=== PATIENT | female | born 1985 | race Caucasian/White ===

== ENCOUNTER 2020-09-11 12:12 | Emergency (ER) | payer OTHER ==
[2020-09-11] MEDS ORDERED: Sodium Chloride 0.9% 10 ML Syringe FLUSH PRN (12:34)
[2020-09-11] MEDS ORDERED: Sodium Chloride 0.9% 1,000 ML IV SCH ×2 (12:45→17:30)
[2020-09-11 13:06] LABS: CHLORIDE,CL 103 mmol/L (98-107); SODIUM,NA 138 mmol/L (136-145)
[2020-09-11 13:09] LABS: ANION GAP 13.1 mmol/L (10-20)
[2020-09-11 13:15] LABS: ACETAMINOPHEN 0 ug/ml (10-30)
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
[2020-09-11] MEDS ORDERED: Ketorolac 15 MG/ML SDV IVPUSH ONE (14:16)
[2020-09-11] MEDS ORDERED: Metoclopramide 10 MG/2 ML SDV IVPUSH ONE (14:18)
[2020-09-11 17:15] LABS: BARBITURATE SCREEN,URINE NEGATIVE (NEGATIVE); BENZODIAZEPINES SCREEN,URINE POSITIVE (NEGATIVE); EDDP,URINE SCREEN NEGATIVE (NEGATIVE); METHAMPHETAMINE SCREEN, URINE NEGATIVE (NEGATIVE); TCA SCREEN,URINE POSITIVE (NEGATIVE); THC SCREEN,URINE 50 NG/ML NEGATIVE (NEGATIVE)
--- NOTE | 2020-09-11 17:42 | CT ---
[id number] CT/CT Head WO IV EXAM: CT Head WO IV CLINICAL DATA: HEADACHE. COMPARISON STUDY: None FINDINGS: No intracranial hemorrhage, extra-axial fluid collection, mass, or acute ischemia. No hydrocephalus. Calvarium intact. Paranasal sinus mucosal thickening. Air-fluid level in left maxillary sinus. Frothy secretions in the sphenoid sinuses. Near complete opacification of the ethmoid sinuses. Mastoid air cells middle ear cavities are clear. IMPRESSION: Normal examination of the brain. Paranasal sinusitis. Inderjit Josue MD 09/11/20 1740 Thank you for allowing us to participate in the care of your patient.
== END 2020-09-11 18:55 | disposition short-term general hospital (02) ==
LOC: VM.ED 12:12
DX: T42.8X2A Poisoning by antiparkinsonism drugs and other central muscle-tone depressants, intentional self-harm, initial encounter (principal); T42.4X2A Poisoning by benzodiazepines, intentional self-harm, initial encounter; Z88.8 Allergy status to other drugs, medicaments and biological substances; Z88.1 Allergy status to other antibiotic agents; Z88.5 Allergy status to narcotic agent; Z79.899 Other long term (current) drug therapy; Z20.828 Contact with and (suspected) exposure to other viral communicable diseases
CPT/HCPCS: 70450; 80053; 80305-QW; 80307; 81001; 81025; 83735; 84443; 84484; 85025; 85610; 85730; 86140; 87086; 87088; 87186; 93005; 93010; 96374; 96375; 99284; 99285-25; J1885; J2765; J7030; U0002